=== PATIENT | male | born 1975 | race Caucasian/White ===

== ENCOUNTER 2018-01-29 14:12 | Emergency (ER) | payer MEDICAID ==
[~2018-01-29] VITALS: Ht 175.2 cm; Wt 158.8 kg
--- NOTE | ~2018-01-29 | EKG ---
[place], [place] ELECTROCARDIOGRAM REPORT NAME: LANDEN AC JR UNIT #: [id number] ROOM: DOCTOR: DANILO TEIXEIRA MD BIRTHDATE: [birth year] DOS: 01/29/2018 TIME: 1505 hours. FINDINGS: 1. Normal sinus rhythm at 79 beats per minute. 2. Consider left ventricular hypertrophy. 3. No previous tracing is available for comparison. DANILO TEIXEIRA MD CM:EKGRPT:ELECTROCARDIOGRAM REPORT [id number] 1300 DANILO TEIXEIRA MD
[~2018-01-29 14:12] MED LIST: BACTRIM DS 8001 TA1 PO; CIPROFLOXACIN500 MG PO; CLARITIN10 MG PO; DIFLUCAN150 MG PO; KEFLEX500 MG PO; MEDROL DOSEPAK4 MG PO; MOTRIN800 MG PO; NYSTATIN100000 U/M PO; PYRIDIUM100 MG PO; ZANTAC 150150 MG PO; ZOLOFT50 MG PO
[2018-01-29 15:06] LABS: BASO % 0.6 % (0.0-1.0); EOS # 0.1 10*3/uL (0.0-0.4); EOS % 2.2 % (1.0-4.0); HEMOGLOBIN 13.6 g/dl (14.0-18.0); LYMPH # 1.2 10*3/uL (1.3-4.4); LYMPH % 18.3 % (27.0-41.0); MEAN CELL VOLUME 87.4 fl (80.0-94.0); MEAN CORPUSCULAR HGB 27.6 pg (27.0-31.0); MEAN CORPUSCULAR HGB CONC 31.6 g/dl (33.0-37.0); MEAN PLATELET VOLUME 9.6 fl (9.6-12.3); MONO # 0.6 10*3/uL (0.1-1.0); MONO % 9.7 % (3.0-9.0); NEUT # 4.5 10*3/uL (2.3-7.9); PLATELET COUNT AUTOMATED 233 10*3/uL (130-400); RED BLOOD COUNT 4.92 10*6/uL (4.50-5.90); RED CELL DISTRI WIDTH 13.5 % (0-14.5); WHITE BLOOD COUNT 6.5 10*3/uL (4.8-10.8)
[2018-01-29 15:14] LABS: ACT PARTIAL THROMBO TIME 21.6 SECONDS (20.8-31.5); INTERNATIONAL NORM RATIO 0.9 (2.0-3.5)
[2018-01-29 15:22] LABS: ALBUMIN 3.6 gm/dl (3.1-4.5); ALKALINE PHOSPHATASE 55 U/L (45-117); BUN 15 mg/dl (7-24); CHLORIDE 108 mmol/L (98-107); CREATININE 0.81 mg/dL (0.70-1.30); LIPASE 191 U/L (73-393); POTASSIUM 4.2 mmol/L (3.5-5.1); SGOT/AST 11 IU/L (3-35); SGPT/ALT 34 U/L (12-78); SODIUM 141 mmol/L (136-145); TOTAL PROTEIN 7.6 gm/dL (6.4-8.2)
[2018-01-29 15:24] LABS: TROPONIN I < 0.015 ng/ml (<0.045)
[2018-01-29] MEDS ORDERED: DOXYCYCLINE100 M3 PO (16:08)
== END 2018-01-29 16:17 | disposition home or self-care (01) ==
LOC: ED 14:12
PROVIDERS: Nurse Practitioner Family
DX: L03.115 Cellulitis of right lower limb (principal); I10 Essential (primary) hypertension; Z88.1 Allergy status to other antibiotic agents; Z88.8 Allergy status to other drugs, medicaments and biological substances

== ENCOUNTER 2018-02-14 18:05 | Emergency (ER) | payer SELFPAY ==
[~2018-02-14] VITALS: Ht 175.2 cm; Wt 152.0 kg
[~2018-02-14 18:05] MED LIST changes: +DOXYCYCLINE100 M3 PO
[2018-02-14] MEDS ORDERED: CEPHALEXIN500 M1 PO (19:40)
== END 2018-02-14 19:55 | disposition home or self-care (01) ==
LOC: ED 18:05
DX: S80.812A Abrasion, left lower leg, initial encounter (principal); L03.116 Cellulitis of left lower limb; Z88.2 Allergy status to sulfonamides; W10.9XXA Fall (on) (from) unspecified stairs and steps, initial encounter; Y93.01 Activity, walking, marching and hiking; Y92.89 Other specified places as the place of occurrence of the external cause; Y99.8 Other external cause status

== ENCOUNTER 2019-05-22 13:02 | Emergency (ER) | payer OTHER ==
[~2019-05-22] VITALS: Ht 175.2 cm; Wt 161.0 kg
[~2019-05-22 13:02] MED LIST changes: +CEPHALEXIN500 M1 PO
[2019-05-22] MEDS ORDERED: Motrin,Rufen800 MG PO (15:15)
== END 2019-05-22 15:41 | disposition home or self-care (01) ==
LOC: ED 13:02
DX: M75.32 Calcific tendinitis of left shoulder (principal); Z88.2 Allergy status to sulfonamides; Z79.899 Other long term (current) drug therapy; Z79.2 Long term (current) use of antibiotics

== ENCOUNTER 2019-12-01 13:48 | Emergency (ER) | payer OTHER ==
[~2019-12-01] VITALS: Ht 175.2 cm; Wt 161.0 kg
[~2019-12-01 13:48] MED LIST changes: +Motrin,Rufen800 MG PO
[2019-12-01] MEDS ORDERED: ESCITALOPRAM OX20 MG PO (14:15)
[2019-12-01] MEDS ORDERED: LISINOPRIL40 MG PO (14:15)
[2019-12-01] MEDS ORDERED: METFORMIN HYDR500 MG PO (14:15)
[2019-12-01] MEDS ORDERED: AMLODIPINE BESYL5 MG PO (14:15)
[2019-12-01] MEDS ORDERED: ROSUVASTATIN CA10 MG PO (14:16)
[2019-12-01] MEDS ORDERED: OZEMPIC0.25 MG/01 SQ (14:16)
== END 2019-12-01 15:15 | disposition home or self-care (01) ==
LOC: ED 13:48
DX: H61.21 Impacted cerumen, right ear (principal); E78.00 Pure hypercholesterolemia, unspecified; F32.9 Major depressive disorder, single episode, unspecified; I10 Essential (primary) hypertension; Z79.899 Other long term (current) drug therapy; Z79.84 Long term (current) use of oral hypoglycemic drugs; Z79.2 Long term (current) use of antibiotics

== ENCOUNTER 2020-03-23 16:37 | Emergency (ER) | payer OTHER ==
[~2020-03-23] VITALS: Ht 175.2 cm; Wt 145.1 kg
[~2020-03-23 16:37] MED LIST changes: +AMLODIPINE BESYL5 MG PO; +ESCITALOPRAM OX20 MG PO; +LISINOPRIL40 MG PO; +METFORMIN HYDR500 MG PO; +OZEMPIC0.25 MG/01 SQ; +ROSUVASTATIN CA10 MG PO
[2020-03-23] MEDS ORDERED: MEDROL DOSEPAK4 MG PO (18:05)
== END 2020-03-23 18:09 | disposition home or self-care (01) ==
LOC: ED 16:37
DX: M75.32 Calcific tendinitis of left shoulder (principal)

== ENCOUNTER 2020-12-07 11:51 | Emergency (ER) | payer OTHER ==
[~2020-12-07] VITALS: Ht 175.2 cm; Wt 153.8 kg
[2020-12-07] MEDS ORDERED: METHOCARBAMOL500 M1 PO (16:00)
[2020-12-07] MEDS ORDERED: PREDNISONE20 M1 PO (16:00)
== END 2020-12-07 15:58 | disposition home or self-care (01) ==
LOC: ED 11:51
DX: M54.32 Sciatica, left side (principal); Z88.2 Allergy status to sulfonamides; Z79.899 Other long term (current) drug therapy

== ENCOUNTER 2021-02-21 10:51 | Emergency (ER) | payer OTHER ==
[~2021-02-21] VITALS: Ht 177.8 cm; Wt 158.8 kg
[~2021-02-21 10:51] MED LIST changes: +METHOCARBAMOL500 M1 PO; +PREDNISONE20 M1 PO
== END 2021-02-21 12:58 | disposition home or self-care (01) ==
LOC: ED 10:51
DX: S80.12XA Contusion of left lower leg, initial encounter (principal); Z88.2 Allergy status to sulfonamides; Z79.899 Other long term (current) drug therapy; W20.8XXA Other cause of strike by thrown, projected or falling object, initial encounter; Y93.89 Activity, other specified; Y92.89 Other specified places as the place of occurrence of the external cause; Y99.8 Other external cause status

== ENCOUNTER 2024-01-16 12:01 | Emergency (ER) | payer OTHER ==
[~2024-01-16] VITALS: Ht 177.8 cm; Wt 161.9 kg
[2024-01-16] MEDS ORDERED: AMOX-CLAV 875-1 EACH PO (15:09)
== END 2024-01-16 15:11 | disposition home or self-care (01) ==
LOC: ED 12:01
DX: S90.111A Contusion of right great toe without damage to nail, initial encounter (principal); S90.411A Abrasion, right great toe, initial encounter; L08.89 Other specified local infections of the skin and subcutaneous tissue; I10 Essential (primary) hypertension; E78.00 Pure hypercholesterolemia, unspecified; F32.A Depression, unspecified; E11.9 Type 2 diabetes mellitus without complications; Z88.2 Allergy status to sulfonamides; Z88.8 Allergy status to other drugs, medicaments and biological substances; W20.8XXA Other cause of strike by thrown, projected or falling object, initial encounter; Y93.89 Activity, other specified; Y92.009 Unspecified place in unspecified non-institutional (private) residence as the place of occurrence of the external cause; Y99.8 Other external cause status